=== PATIENT | male | born 1985 | race Caucasian/White ===

== ENCOUNTER 2024-12-15 13:27 | Emergency (ER) | payer SELFPAY ==
[2024-12-15 13:40] VITALS: BP 138/80; PULSE 88; RESP 18; TEMP 36.7; O2SAT 97
--- NOTE | 2024-12-15 14:11 | ED_ITS ---
HPI - General Adult General Chief complaint: Eye Problems Stated complaint: Eye Problem Source: patient Mode of arrival: ambulatory Limitations: no limitations History of Present Illness HPI narrative: Patient presents for evaluation of redness and swelling to right upper eyelid. His initial symptom was itching to the affected area which he first noticed four days ago. He had what he hought to be a skin tag to the right upper eyelid which he squeezed. He noted redness and swelling thereafter. He states that when he wakes up for the morning his eyes usually swelling shut. As the day goes on, his swelling subsides. He denies any visual disturbance. He wears glasses but not contacts. Denies any fever, chills, nausea, vomiting. He has what he describes as a ?sinus headache . There is some excoriated skin in the affected area. No history of HSV. Related Data Allergies Allergy/AdvReac Type Severity Reaction Status Date / Time No Known Allergies Allergy Verified 12/15/24 13:45 Review of Systems Review of Systems: CONSTITUTIONAL: Denies fever, chills, or sweats. EYES: Denies visual changes, redness, or discharge. ENT: Denies rhinorrhea, congestion, sore throat, or otalgia. CARDIOVASCULAR: Denies chest pain, palpitations, or edema. RESPIRATORY: Denies cough or dyspnea. GASTROINTESTINAL: Denies abdominal pain, nausea, vomiting, or diarrhea. GENITOURINARY: Denies dysuria or hematuria. SKIN: Reports excoriated skin to the right upper eyelid. Reports redness and swelling to the right upper eyelid. MUSCULOSKELETAL: Denies back pain, joint pain, or myalgia. NEUROLOGIC: Denies headache, numbness, dizziness, or weakness. PSYCHIATRIC: Denies anxiety or depression. [facility] Past Medical History Medical History No pertinent past medical history Surgical History Surgical History No pertinent past surgical history Family History Family History Mother Family history non-contributory Social History Social History (Updated 12/15/24 @ 14:14 by Robert L.E. Nikky, [employer], BC) Alcohol intake: never Substance use: never Gender identity (if verbalized by the patient): Female Spiritual care concerns: No Exam Narrative: GENERAL: Well-appearing, well-nourished, and in no acute distress. HEAD: Normocephalic, atraumatic. EYES: PERRLA and EOMI. There is some right periorbital swelling present. There is no dye uptake when evaluated with fluorescein and Wood's lamp ENT: Nares clear, no rhinorrhea or epistaxis. Mucous membranes moist. Oropharynx without tonsillar hypertrophy exudate or other lesions. Bilateral TMs pearly lopez nonbulging NECK: Supple. No adenopathy or masses. No carotid bruits or JVD CHEST: Clear to auscultation. No respiratory distress. No wheezes rales or rhonchi HEART: Regular rate and rhythm. No murmur heard. Normal peripheral pulses. ABDOMEN: Soft, nontender, nondistended, normal active bowel sounds. EXTREMITIES: Normal range of motion. No edema. SKIN: There is erythema noted to the right upper eyelid with excoriated skin present. Warm and dry NEURO: No focal deficits. Alert and oriented x3. PSYCH: Normal mood and affect. Course Course Emergency Course: This is a 39 year old male who presented for evaluation of redness, swelling and exploration of the skin of the right upper eyelid. I performed fluorescein stain to ensure this was not a herpetic ophthalmicus. There is no dye uptake or evidence of this. I did perform a aerobic/anaerobic and viral cultures of the area. This appears to be impetigo/periorbital cellulitis. Will cover with Bactrim and cephalexin. Follow-up with primary provider. Go to the ER for worsening symptoms. Patient in agreement with plan of care. Level of Care: Express Care Visit Vital Signs Vital signs: Vital Signs Temperature 36.7 C 12/15/24 13:40 Pulse Rate 88 12/15/24 13:40 Respiratory Rate 18 12/15/24 13:40 Blood Pressure 138/80 12/15/24 13:40 Pulse Oximetry 97 12/15/24 13:40 Oxygen Delivery Room Air 12/15/24 13:40 Temperature 36.7 C 12/15/24 13:40 Pulse Rate 88 12/15/24 13:40 Respiratory Rate 18 12/15/24 13:40 Blood Pressure 138/80 12/15/24 13:40 Pulse Oximetry 97 12/15/24 13:40 Oxygen Delivery Room Air 12/15/24 13:40 Medical Decision Making Vital Signs Vital Signs: Vital Signs Temperature 36.7 C 12/15/24 13:40 Pulse Rate 88 12/15/24 13:40 Respiratory Rate 18 12/15/24 13:40 Blood Pressure 138/80 12/15/24 13:40 Pulse Oximetry 97 12/15/24 13:40 Oxygen Delivery Room Air 12/15/24 13:40 Temperature 36.7 C 12/15/24 13:40 Pulse Rate 88 12/15/24 13:40 Respiratory Rate 18 12/15/24 13:40 Blood Pressure 138/80 12/15/24 13:40 Pulse Oximetry 97 12/15/24 13:40 Oxygen Delivery Room Air 12/15/24 13:40 Discharge Plan Discharge Clinical Impression: Impetigo, Cellulitis, periorbital Patient Disposition: Home, Self-Care Condition: Stable Instructions: Antibiotic Form, Impetigo (DC), Periorbital Cellulitis (ED) Patient Language: Montenegrin Prescriptions: New cephalexin 500 mg capsule 500 mg PO Q6H Qty: 40 0RF sulfamethoxazole-trimethoprim [Bactrim DS] 800-160 mg tablet 1 tablet PO Q12H Qty: 20 0RF Follow-up/Referrals: Jerrod Bush MD [Physician] - Time of Disposition: 14:32
[2024-12-15] MEDS: DACRIOSE EYE IRRIGATION 118 ML BOTTLE RIGHT EYE (14:37)
[2024-12-15] MEDS: TETRACAINE HCL 0.5% OPHTH SOLN 4 ML BTL RIGHT EYE (14:38)
[2024-12-15] MEDS: FLUORESCEIN SOD 1 MG/STRIP RIGHT EYE (14:38)
[2024-12-18 03:43] LABS: Source FACE
== END 2024-12-15 14:45 | disposition home or self-care (01) ==
PROVIDERS: Emergency Provider Nurse Practitioner
DX: L01.00 Impetigo, unspecified (principal); H05.011 Cellulitis of right orbit
CPT/HCPCS: 87070; 87075; 87140; 87205; 87255; 99203; A9270; G0463